=== PATIENT | female | born 1975 | race Caucasian/White ===

== ENCOUNTER 2022-05-02 23:59 | Emergency (ER) | payer OTHER ==
[~2022-05-02 23:59] MED LIST: FLEXERIL 10 MG10 MG PO; NAPROSYN500 MG PO
[2022-05-03 00:29] LABS: HEMOGLOBIN 11.5 gm/dl (12.3-15.3); RED BLOOD COUNT 4.74 M/UL (4.00-5.10); WHITE BLOOD COUNT 9.4 K/UL (4.5-11.0)
[2022-05-03 01:00] LABS: BUN/CREATININE RATIO 17 (0-10)
== END 2022-05-03 03:26 | disposition home or self-care (01) ==
LOC: ER1 23:59
PROVIDERS: Family Medicine
DX: R07.9 Chest pain, unspecified (principal); E11.9 Type 2 diabetes mellitus without complications; I10 Essential (primary) hypertension; Z79.4 Long term (current) use of insulin
CPT/HCPCS: 71045; 80053; 82550; 82553; 84484; 85025; 93005; 99285